=== PATIENT | male | born 1945 | race Hispanic/Latino ===

== ENCOUNTER 2020-07-21 07:03 | Day surgery (SDC) | payer MEDICARE ==
[2020-07-18 11:13] LABS: EOSINOPHILS % (AUTO) 9.6 % (0.0-8.0); HEMATOCRIT 23.7 % (42-54); LYMPHOCYTES % (AUTO) 23.3 % (21.0-51.0); MEAN CORPUSCULAR HEMOGLOBIN 36.4 pg (27.0-33.0); MEAN CORPUSCULAR HGB CONC 33.8 g/dL (32.0-36.0); MEAN CORPUSCULAR VOLUME 107.7 fL (79-99); MONOCYTES % (AUTO) 4.2 % (3.0-13.0); NEUTROPHILS % (AUTO) 62.6 % (40.0-77.0); PLATELET COUNT (AUTO) 260 K/uL (130-400); RED CELL DISTRIBUTION WIDTH 16.6 % (11.0-15.5); WHITE BLOOD COUNT (AUTO) 7.9 K/uL (4.8-10.8)
[2020-07-18 11:21] LABS: CREATININE 4.4 mg/dL (0.5-1.5); POTASSIUM 5.2 mmol/L (3.5-5.1)
[2020-07-18 11:52] LABS: INR 1.04 (0.85-1.15); PROTHROMBIN TIME 11.3 SEC (9.6-11.6)
[2020-07-18 11:53] LABS: PARTIAL THROMBOPLASTIN TIME 28.1 SEC (26.3-35.5)
[2020-07-18 12:47] VITALS: BP 152/73
[2020-07-21] VITALS (10 sets, daily range): BP systolic 110–170; BP diastolic 54–90
[~2020-07-21] VITALS: Ht 177.8 cm; Wt 102.4 kg
[~2020-07-21 07:03] MED LIST: SODIUM CHLORIDE 0.9% 500ML 500 ML IV SCH
[2020-07-21 07:33] LABS: BASOPHILS % (AUTO) 0.1 % (0.0-5.0); MEAN CORPUSCULAR HGB CONC 33.5 g/dL (32.0-36.0)
[2020-07-21 07:40] LABS: CREATININE 4.3 mg/dL (0.5-1.5); POTASSIUM 5.5 mmol/L (3.5-5.1)
[2020-07-21 08:12] LABS: HEMATOCRIT 24.2 % (42-54); LYMPHOCYTES % (AUTO) 30.9 % (21.0-51.0); MEAN CORPUSCULAR VOLUME 107.6 fL (79-99); MONOCYTES % (AUTO) 4.7 % (3.0-13.0); NEUTROPHILS % (AUTO) 51.9 % (40.0-77.0); PLATELET COUNT (AUTO) 238 K/uL (130-400); RED BLOOD CELL COUNT(AUTO) 2.25 MIL/uL (4.50-6.20); RED CELL DISTRIBUTION WIDTH 16.4 % (11.0-15.5); WHITE BLOOD COUNT (AUTO) 7.8 K/uL (4.8-10.8)
[2020-07-21] MEDS ORDERED: TAMS-1 PO (08:49)
[2020-07-21] MEDS ORDERED: ISOS60TA77 PO (08:49)
[2020-07-21] MEDS ORDERED: SODI10PO2 PO (08:49)
[2020-07-21] MEDS ORDERED: HYDR-4154 PO ×2 (08:49)
[2020-07-21] MEDS ORDERED: SODI650T PO (08:49)
[2020-07-21] MEDS ORDERED: KBU (08:49)
[2020-07-21] MEDS ORDERED: AMLO-257 PO (08:49)
[2020-07-21] MEDS ORDERED: CARV25TA PO (08:49)
[2020-07-21] MEDS ORDERED: GLIM4TAB36 PO (08:49)
[2020-07-21] MEDS ORDERED: MONT10TA32 PO (08:49)
[2020-07-21] MEDS ORDERED: CLON0.1T PO (08:49)
[2020-07-21] MEDS ORDERED: FERR236T3 PO (08:49)
[2020-07-21] MEDS ORDERED: LEVO50CA4 PO (08:49)
[2020-07-21] MEDS ORDERED: MULT-1333 PO (08:49)
[2020-07-21] MEDS ORDERED: ASPI-1197 PO (08:49)
[2020-07-21] MEDS ORDERED: ALBU8.5H8 IH (08:49)
[2020-07-21] MEDS ORDERED: FINA5TAB41 PO (08:49)
[2020-07-21] MEDS ORDERED: BUME2TAB5 PO (08:49)
[2020-07-21] MEDS ORDERED: ATOR10 PO (08:49)
[2020-07-21] MEDS ORDERED: [UNRECOGNIZED DRUG - CODE] IJ (08:49)
[2020-07-21] MEDS ORDERED: MV-M1TAB20 PO (08:49)
[2020-07-21] MEDS ORDERED: BUPIVACAINE/PF 0.25% 30ML VIAL IJ ONE (11:21)
[2020-07-21] MEDS ORDERED: MEPERIDINE-PF 25 MG/ML SYG ONE ×3 (11:22→12:11)
[2020-07-21] MEDS ORDERED: CEFAZOLIN SODIUM 1 GM VIAL ONE (11:22)
[2020-07-21] MEDS ORDERED: MIDAZOLAM HCL 1 MG/ML 2ML VIAL ONE ×3 (11:23→12:11)
[2020-07-21] MEDS ORDERED: LIDOCAINE HCL 1% MDV 50ML VIAL ONE (11:23)
[2020-07-21] MEDS ORDERED: IOHEXOL-350 50ML VIAL IV ONE (12:21)
[2020-07-21] MEDS ORDERED: TRAM50TA4 PO (13:14)
[2020-07-21] MEDS ORDERED: ACETAMINOPHEN-CODEINE 300/30MG TAB PO PRN (13:15)
== END 2020-07-21 17:45 | disposition home or self-care (01) ==
LOC: DAH 07:03
PROVIDERS: ATTEND Internal Medicine Cardiovascular Disease
DX: I25.5 Ischemic cardiomyopathy (principal); E11.22 Type 2 diabetes mellitus with diabetic chronic kidney disease; I13.2 Hypertensive heart and chronic kidney disease with heart failure and with stage 5 chronic kidney disease, or end stage renal disease; N18.5 Chronic kidney disease, stage 5; I50.22 Chronic systolic (congestive) heart failure; D53.9 Nutritional anemia, unspecified; E78.5 Hyperlipidemia, unspecified; Z79.01 Long term (current) use of anticoagulants; Z79.84 Long term (current) use of oral hypoglycemic drugs; Z79.82 Long term (current) use of aspirin; Z87.891 Personal history of nicotine dependence
CPT/HCPCS: 33249; 36415 ×2; 71045; 80048 ×2; 82948 ×2; 85025 ×2; 85610; 85730; 93005; A4215; A4216; A4221; A4222; A4223 ×3; A4606; A4663; C1786; C1898; J0690; J2175 ×3; J2250 ×3; J3490 ×2; Q9967; 33207; 99156; 99157

== ENCOUNTER 2021-07-09 05:45 | Day surgery (SDC) | payer OTHER, MEDICARE ==
[2021-07-07 09:52] LABS: HEMATOCRIT 23.9 % (42-54); LYMPHOCYTES % (AUTO) 31.7 % (21.0-51.0); MEAN CORPUSCULAR HGB CONC 31.4 g/dL (32.0-36.0); MEAN CORPUSCULAR VOLUME 105.3 fL (79-99); MONOCYTES % (AUTO) 5.3 % (3.0-13.0); NEUTROPHILS % (AUTO) 50.8 % (40.0-77.0); PLATELET COUNT (AUTO) 127 K/uL (130-400); RED BLOOD CELL COUNT(AUTO) 2.27 MIL/uL (4.50-6.20); RED CELL DISTRIBUTION WIDTH 18.7 % (11.0-15.5); WHITE BLOOD COUNT (AUTO) 9.2 K/uL (4.8-10.8)
[2021-07-07 09:59] LABS: CREATININE 4.3 mg/dL (0.5-1.5); POTASSIUM 3.6 mmol/L (3.5-5.1)
[2021-07-07 10:01] LABS: INR 1.09 (0.85-1.15); PROTHROMBIN TIME 11.8 SEC (9.6-11.6)
[2021-07-07 10:03] LABS: PARTIAL THROMBOPLASTIN TIME 29.2 SEC (26.3-35.5)
[~2021-07-09] VITALS: Ht 177.8 cm; Wt 102.1 kg
[2021-07-09] VITALS (12 sets, daily range): BP systolic 119–149; BP diastolic 45–82
[~2021-07-09 05:45] MED LIST changes: +AMLO-258 PO; +ASPI-1443 PO; +ATOR10TA69 PO; +CARV25TA PO; +CLON0.1T PO; +FINA5TAB41 PO; +GLIM4TAB36 PO; +ISOS60TA77 PO; +MONT-39 PO; +MULT-1367 PO; +SACU1TAB7 PO; +SENN8.6T32 PO; +SODI650T PO; -SODIUM CHLORIDE 0.9% 500ML 500 ML IV SCH; +TAMS-1 PO; +VITAD50000 PO; +ferrous sulfate PO
[2021-07-09] MEDS ORDERED: 0.9% NACL 500ML IV.SOLN 500 ML IV SCH (06:00)
[2021-07-09] MEDS ORDERED: 0.9%NACL 1000ML 1,000 ML IV ONE (06:11)
[2021-07-09] MEDS ORDERED: LEVO50TA11 PO (06:41)
[2021-07-09] MEDS ORDERED: HEPARIN 10,000 UNIT/10ML (1,000 UNIT/ML) VIAL ONE (07:21)
[2021-07-09] MEDS ORDERED: IOHEXOL 350 MG/ML 100ML INFUS..BTL IV ONE ×2 (07:21→09:40)
[2021-07-09] MEDS ORDERED: NITROGLYCERIN 50MG VIAL ONE (07:21)
[2021-07-09] MEDS ORDERED: IOHEXOL-350 50ML VIAL IV ONE (07:21)
[2021-07-09] MEDS ORDERED: LIDOCAINE HCL 400MG/20ML VIAL ONE (07:22)
[2021-07-09] MEDS ORDERED: MIDAZOLAM HCL 1 MG/ML 2ML VIAL ONE (07:22)
[2021-07-09] MEDS ORDERED: FENTANYL CITRATE PF 50 MCG/1 ML 2ML VIAL ONE (07:41)
[2021-07-09] MEDS ORDERED: BIVALIRUDIN 250 MG/VIAL IV ONE ×2 (08:21→09:00)
[2021-07-09] MEDS ORDERED: ASPIRIN 325MG EC TAB PO ONE (08:22)
[2021-07-09] MEDS ORDERED: CLOPIDOGREL 300MG TAB ONE ×2 (08:22→08:35)
[2021-07-09] MEDS ORDERED: CLOP75TA32 PO (10:20)
[2021-07-09] MEDS ORDERED: GLUCAGON 1MG KIT 1 MG ML IM PRN (10:30)
[2021-07-09] MEDS ORDERED: DEXTROSE 50%-WATER 50 ML DISP.SYRIN IV PRN (10:30)
[2021-07-09] MEDS ORDERED: INSULIN HUMULIN R 100 UNIT/ML 3ML SQ SCH (11:30)
[2021-07-09] MEDS ORDERED: ACETAMINOPHEN 500 MG TABLET ONE (16:13)
== END 2021-07-09 17:02 | disposition home or self-care (01) ==
LOC: DAH 05:45
PROVIDERS: ATTEND Internal Medicine Cardiovascular Disease
DX: I25.10 Atherosclerotic heart disease of native coronary artery without angina pectoris (principal); I25.5 Ischemic cardiomyopathy; E11.22 Type 2 diabetes mellitus with diabetic chronic kidney disease; I13.2 Hypertensive heart and chronic kidney disease with heart failure and with stage 5 chronic kidney disease, or end stage renal disease; I50.22 Chronic systolic (congestive) heart failure; N18.6 End stage renal disease; E11.51 Type 2 diabetes mellitus with diabetic peripheral angiopathy without gangrene; E03.9 Hypothyroidism, unspecified; E78.5 Hyperlipidemia, unspecified; D53.9 Nutritional anemia, unspecified; Z98.890 Other specified postprocedural states; Z79.82 Long term (current) use of aspirin; Z79.890 Hormone replacement therapy; Z79.01 Long term (current) use of anticoagulants; Z79.899 Other long term (current) drug therapy; Z99.2 Dependence on renal dialysis; Z89.512 Acquired absence of left leg below knee; Z95.5 Presence of coronary angioplasty implant and graft
CPT/HCPCS: 36415; 71045; 80048; 82948 ×2; 85025; 85610; 85730; 93005; 93458; 93799; A4215; A4216; A4221; A4222; A4223 ×3; A4606; A4663; C1725 ×2; C1760; C1761; C1769 ×2; C1874; C1887 ×3; C1894 ×2; C9600; J0583 ×2; J1644 ×2; J3010; J3490 ×2; J7030; Q9965 ×3; Q9967 ×3; 99156; 99157; J2250